=== PATIENT | female | born 1985 | race Native Hawaiian/Other Pacific Islander ===

== ENCOUNTER 2018-05-17 14:07 | Inpatient (IN) | payer OTHER ==
[2018-05-17] MEDS: Lactated Ringer's 1,000 ML IV ONE ×2 (14:50→15:50)
[2018-05-17 14:59] VITALS: BMI 26.9
[2018-05-17] MEDS ORDERED: ceFAZolin 2 GM in Sodium Chloride 0.9% 100 ML IVPB ONE (15:02)
[2018-05-17] MEDS ORDERED: Oxytocin 30 UNIT 30 UNITS/500 ML BAG IV ONE (15:06)
[2018-05-17] MEDS ORDERED: OXYTOCIN/0.9 % NS 20 UNIT/1,000 ML BAG IV SCH (15:15)
[2018-05-17 15:29] LABS: BASO % 0.2 % (0.0-2.0); EOS % 0.4 % (0.0-4.0); HEMOGLOBIN 13.4 g/dL (12.0-16.0); LYMPH # 1.5 K/uL (1.0-4.3); LYMPH % 13.7 % (20.0-40.0); MEAN CELL VOLUME 93.9 fl (81.0-99.0); MEAN CORPUSCULAR HEMOGLOBIN 31.6 pg (27.0-31.0); MEAN CORPUSCULAR HGB CONC 33.7 g/dL (33.0-37.0); MEAN PLATELET VOLUME 8.9 fl (7.2-11.7); MONO # 0.6 K/uL (0.0-0.8); MONO % 5.9 % (0.0-10.0); NEUT # 8.7 K/uL (1.8-7.0); NEUT % 79.8 % (50.0-75.0); NRBC % 0.1 % (0.0-0.0); RBC 4.25 Mil/uL (3.80-5.20); RED CELL DISTRIBUTION WIDTH 13.6 % (11.5-14.5); WHITE BLOOD COUNT 10.9 K/uL (4.8-10.8)
[2018-05-17] MEDS: Lactated Ringer's 1,000 ML IV SCH (17:03)
[2018-05-17] MEDS ORDERED: Morphine 1 mg/ml preservative-free Inj(Duramorph) ONE (17:18)
[2018-05-17] MEDS ORDERED: Phenylephrine 10 mg/ml Inj ONE (17:19)
[2018-05-17] MEDS ORDERED: DiphenhydrAMINE 50 mg/ml Inj IVP PRN (17:32)
[2018-05-17] MEDS ORDERED: Naloxone 0.4 mg/ml Inj (Adult) IVP PRN (17:32)
[2018-05-17] MEDS ORDERED: Oxycodone/Acetaminophen 5/325 mg Tab PO PRN ×2 (18:37)
[2018-05-17] MEDS ORDERED: Lactated Ringer's 1,000 ML IV SCH (18:45)
--- NOTE | 2018-05-17 18:46 | OBHP ---
Datetime: 05/17/2018 14:59 IP Adm Impression: Term, intrauterine IP Chief Complaint Other: Oligohydramnios, Breech IP Admit Plan: Admit to unit; Initiate Section protocol Admit Comment, IP Provider: Pt is a 32 yo F 37.5wk, CAROL 06/03/18 based on LMP 08/27/17, went f or a check up U/S and was told she has oligohydramnios and breech so she came to hospital for a C sec tion. Pt states she may have ROM, last night at 8:30pm she felt fluid more than the usual. Denies vag inal bleeding, contractions, fevers, chills, chest pain, SOB, nausea, vomiting, diarrhea, constipatio n or dysuria. Reports good movement. PNP: Dr. Evnas OB Hx: [place]ligo , BPP 02/15, TATY 3.4 [employer] Hx: Abnormal pap smears 2007-HPV, 11/25- NILM, Denies other STI's PNL: GBS unknown, ABO: O +, others unremarkable PMHx: None Meds: Prenatals Allergies: Wellbutrin- Hives Surg Hx: D_C polyp removed-2015, Leep 2007 Fam Hx: Mom- HTN, DM Grandpa-Lung cancer Social Hx: Denies smoking, EtOH, Drug use PE: General: pleasant, in no acute distress HEENT: normocephalic, EOMI Heart: no murmurs, regular rate and rhythm, S1, S2 normal. Lungs: clear to auscultation bilaterally, no wheezing , rales or rhonchi Abdomen: gravid Extremities: no edema A/P: Pt is a 32 yo F 37.5wk here for C section after U/S showed breech and oliohydramnios -Admit to L _ D -Initatie labor protocol- LR's, CBC, Ab, type and screen -Maintain NPO -Monitor heart rate Case reviewed and discussed with Attending -Sneha Toro- PGY1 (Annotations: Data stored by CPN on behalf of user) Pelvic Type - PN: Adequate Extremities - PN: Normal Abdomen - PN: Normal Back - PN: Not Done Breast - PN: Not Done Lungs - PN: Normal Heart - PN: Normal Thyroid - PN: Not Done Neurologic - PN: Normal HEENT - PN: Normal General - PN: Normal FHR - Baseline A Provider: 150's Contraction Comments Provider: None IP Hx Assessment: The History has been Reviewed and is Current Vital Signs Provider: Reviewed; Within Normal Limits IP Chief Complaint: Other NICHD Variability Prov Fetus A: Moderate 6-25bpm NICHD Accel Fetus A IP Provider: [id number] FHR Category Provider Fetus A: Category I NICHD Decel Fetus A IP Provider: None Genitourinary Exam: Not Done DTRs - PN: Not Done
--- NOTE | 2018-05-17 18:47 | OBDS ---
DELIVERY PERSONNEL Delivery Doctor: Jemma Tripp MD Outside Maintenance Worker: Cheryle Desir RN Anesthesiologist: Dr Rivera Caba MATERNAL INFORMATION Delivery Anesthesia: Spinal Medications in Delivery: Pitocin 30 mu/500 mL LR, ancef 2 gm Estimated Blood Loss (ml): 800 Placenta Cultured: No Maternal Complications: None Provider Comments: See operative report LABOR SUMMARY EDC: 06/03/2018 00:00 No. Babies in Womb: 1 Attempted: No Labor Anesthesia: Intrathecal LABOR INFORMATION Reason for Induction: Not Applicable Oxytocin: N/A Group B Beta Strep: Done, Result Unknown Antibiotics # of Doses: 1 Antibiotics Time of Last Dose: 1712 Steroids Given: None Reason Steroids Not Administered: Not Applicable STAGES OF LABOR Stage 3 hrs: 0 Stage 3 min: 1 CSECTION DELIVERY Primary Indication: Breech Presentation CSection Incision: Lower Uterine Transverse BABY A INFORMATION Delivery Date/Time: 05/17/2018 17:44 Method of Delivery: Born in Route : No : N/A Forceps: N/A Vacuum Extraction: N/A Shoulder Dystocia : No SHOULDER DYSTOCIA BABY A Delivery Date/Time: 05/17/2018 17:44 PRESENTATION/POSITION BABY A Cephalic Presentation: N/A Breech Presentation: Rajeev PLACENTA INFORMATION BABY A Placenta Delivery Time : 05/17/2018 17:45 Placenta Method of Delivery: Expressed Placenta Status: Delivered SCORES BABY A Heart Rate 1 min: >100 bpm Resp Effort 1 min: Good Cry Reflex Irritability 1 min: Cough or Sneeze or Pulls Away Muscle Tone 1 min: Active Motion Color 1 min: Body [place], Extremities Blue Resuscitation Effort 1 min: N/A SCORE 1 MIN: 9 Heart Rate 5 min: >100 bpm Resp Effort 5 min: Good Cry Reflex Irritability 5 min: Cough or Sneeze or Pulls Away Muscle Tone 5 min: Active Motion Color 5 min: Body [place], Extremities Blue Resuscitation Effort 5 min: N/A SCORE 5 MIN: 9 INFANT INFORMATION BABY A Gestational Age at Delivery: 37.4 Gestational Status: Term Infant Outcome : Liveborn Condition : Stable Sex: Female IDENTIFICATION/MEDS BABY A ID Band Number: [id number] ID Band Location: Left Leg; Left Arm WEIGHT/LENGTH BABY A Birthweight (gms): 2590 Weight (lb): 5 Infant Weight (oz): 11 CORD INFORMATION BABY A No. Cord Vessels: 3 Nuchal Cord : N/A Cord Blood Taken: Yes Suction: Mouth; Nose
--- NOTE | 2018-05-17 18:49 | OBDS ---
DELIVERY PERSONNEL Delivery Doctor: Jemma Tripp MD 2[employer] Grade Teacher: Cheryle Desir RN Anesthesiologist: Dr Rivera Caba MATERNAL INFORMATION Delivery Anesthesia: Spinal Medications in Delivery: Pitocin 30 mu/500 mL LR, ancef 2 gm Estimated Blood Loss (ml): 800 Placenta Cultured: No Maternal Complications: None Provider Comments: See operative report LABOR SUMMARY EDC: 06/03/2018 00:00 No. Babies in Womb: 1 Attempted: No Labor Anesthesia: Intrathecal LABOR INFORMATION Reason for Induction: Not Applicable Oxytocin: N/A Group B Beta Strep: Done, Result Unknown Antibiotics # of Doses: 1 Antibiotics Time of Last Dose: 1712 Steroids Given: None Reason Steroids Not Administered: Not Applicable STAGES OF LABOR Stage 3 hrs: 0 Stage 3 min: 1 CSECTION DELIVERY Primary Indication: Breech Presentation CSection Incision: Lower Uterine Transverse BABY A INFORMATION Delivery Date/Time: 05/17/2018 17:44 Method of Delivery: Born in Route : No : N/A Forceps: N/A Vacuum Extraction: N/A Shoulder Dystocia : No SHOULDER DYSTOCIA BABY A Delivery Date/Time: 05/17/2018 17:44 PRESENTATION/POSITION BABY A Cephalic Presentation: N/A Breech Presentation: Rajeev PLACENTA INFORMATION BABY A Placenta Delivery Time : 05/17/2018 17:45 Placenta Method of Delivery: Expressed Placenta Status: Delivered SCORES BABY A Heart Rate 1 min: >100 bpm Resp Effort 1 min: Good Cry Reflex Irritability 1 min: Cough or Sneeze or Pulls Away Muscle Tone 1 min: Active Motion Color 1 min: Body [place], Extremities Blue Resuscitation Effort 1 min: N/A SCORE 1 MIN: 9 Heart Rate 5 min: >100 bpm Resp Effort 5 min: Good Cry Reflex Irritability 5 min: Cough or Sneeze or Pulls Away Muscle Tone 5 min: Active Motion Color 5 min: Body [place], Extremities Blue Resuscitation Effort 5 min: N/A SCORE 5 MIN: 9 INFANT INFORMATION BABY A Gestational Age at Delivery: 37.4 Gestational Status: Term Infant Outcome : Liveborn Condition : Stable Sex: Female IDENTIFICATION/MEDS BABY A ID Band Number: [id number] ID Band Location: Left Leg; Left Arm WEIGHT/LENGTH BABY A Birthweight (gms): 2590 Weight (lb): 5 Infant Weight (oz): 11 CORD INFORMATION BABY A No. Cord Vessels: 3 Nuchal Cord : N/A Cord Blood Taken: Yes Suction: Mouth; Nose
[2018-05-17] MEDS ORDERED: Simethicone 80 mg Chewtab PO SCH (22:00)
[2018-05-18] MEDS: Lactated Ringer's 1,000 ML IV SCH (00:14)
[2018-05-18] MEDS ORDERED: Oxycodone/Acetaminophen 5/325 mg Tab PO PRN (00:41)
[2018-05-18] MEDS ORDERED: Naloxone 0.4 mg/ml Inj (Adult) IVP PRN (00:41)
[2018-05-18] MEDS ORDERED: DiphenhydrAMINE 50 mg/ml Inj IVP PRN (00:41)
[2018-05-18] MEDS ORDERED: Lactated Ringer's 1,000 ML IV SCH ×2 (00:41)
[2018-05-18] MEDS ORDERED: OXYTOCIN/0.9 % NS 20 UNIT/1,000 ML BAG IV SCH (00:41)
--- NOTE | 2018-05-18 03:57 | OP ---
PROCEDURE DATE: 05/17/2018 PREOPERATIVE DIAGNOSES: Oligohydramnios, 37 plus weeks, breech presentation, Maternal Medicine recommended delivery. POSTOPERATIVE DIAGNOSES: Oligohydramnios, 37 plus weeks, breech presentation, Maternal Medicine recommended delivery. OPERATION PERFORMED: Primary low-flap transverse section by Pfannenstiel skin incision. SURGEON: Makeda Tripp MD STAMP MAKER: Dr. Barreto ANESTHESIA: Spinal. ANESTHESIA ADMINISTERED BY: Dr. Caba ESTIMATED BLOOD LOSS: 800 mL. URINE OUTPUT: Wills catheter put out approximately 150 mL of clear urine. INTRAVENOUS FLUID INTAKE: The patient received appropriately 2 L of D5 LR intraoperatively. OPERATIVE FINDINGS: Rajeev breech, female, weighing 2590 g, Apgars 9 and 9. Normal uterus, tubes, and ovaries were identified. DESCRIPTION OF PROCEDURE: After informed consent was obtained, the patient was taken to the operating room where she was given spinal anesthesia. She was then prepped and draped in a normal sterile fashion with a leftward tilt. A Pfannenstiel skin incision was then made with a scalpel and carried down to the underlying layer of fascia. The fascia was nicked in the midline. The fascial incision was then extended laterally with Domingo scissors. The superior aspect of the fascial incision was then grasped with Christiano clamps, elevated up, and the rectus muscles were dissected off using both sharp and blunt dissection. Attention was then turned to the inferior aspect of the fascial incision, which in a similar fashion, and the rectus muscles were dissected off using both sharp and blunt dissection. The rectus muscles were then in the midline. The peritoneum was identified and entered sharply with the Metzenbaum scissors. The peritoneal incision was then extended superiorly and inferiorly until good visualization of the bladder. The bladder blade was inserted. The vesicouterine peritoneum was identified and entered sharply with the Metzenbaum scissors. The incision was then extended laterally. A bladder flap was created digitally. The bladder blade was then inserted. The vesicouterine peritoneum was identified and entered sharply with Metzenbaum scissors. The incision was then extended laterally. The bladder flap was created digitally. The bladder blade was readjusted and a low transverse incision was made with the scalpel. The incision was then extended laterally with the bandage scissors. The breech was then delivered atraumatically. The nose and mouth were suctioned with DeLee suction trap. The cord was clamped and cut. The was handed off to awaiting pediatricians. The placenta was then removed manually. The uterus was exteriorized and cleared of all clots and debris. The uterine incision was repaired with 0 Vicryl in a running-locked fashion. The second layer of the same suture was used to obtain excellent hemostasis. The abdomen was then copiously irrigated. The irrigant was removed with the suction device. The incision was noted to hemostatic. The uterus was returned to the abdomen. The gutters were then cleared of all clots and debris. The peritoneum was closed with a 2-0 Vicryl in a running fashion. The muscles were reapproximated with 0 Vicryl in an interrupted fashion. The fascia was closed with 0 Vicryl in a running fashion. The skin was closed with a 3-0 on a Keegan needle. All sponge, lap, needle and instrument counts were correct x2. The patient was taken to the recovery room in awake and stable condition. Makeda Tripp MD
[2018-05-18] MEDS: Simethicone 80 mg Chewtab PO SCH ×4 (04:00→21:03)
[2018-05-18 06:53] LABS: HEMOGLOBIN 11.1 g/dL (12.0-16.0); MEAN CELL VOLUME 94.9 fl (81.0-99.0); MEAN CORPUSCULAR HEMOGLOBIN 31.9 pg (27.0-31.0); MEAN CORPUSCULAR HGB CONC 33.7 g/dL (33.0-37.0); RBC 3.48 Mil/uL (3.80-5.20); RED CELL DISTRIBUTION WIDTH 13.3 % (11.5-14.5); WHITE BLOOD COUNT 11.1 K/uL (4.8-10.8)
[2018-05-18] MEDS: Multivitamin With Minerals Tab PO SCH (08:26)
[2018-05-18] MEDS ORDERED: Enoxaparin 40 mg Syringe SC SCH (09:00)
[2018-05-18] MEDS ORDERED: Multivitamin With Minerals Tab PO SCH (09:00)
[2018-05-18] MEDS: Oxycodone/Acetaminophen 5/325 mg Tab PO PRN ×2 (16:20→21:03)
--- NOTE | 2018-05-18 22:17 | OBPPN ---
Datetime: 05/18/2018 10:13 PP Pain Prov: Within normal limits PP Nausea Prov: Denies PP Flatus Prov: Yes PP Breasts Prov: Normal PP Heart Prov: Normal PP Lungs Prov: Normal PP Abdomen/Uterus Prov: Normal PP Lochia Prov: Normal PP Vulva/Perineum Prov: Normal PP CVA Tenderness Prov: Normal PP Extremities Prov: Normal PP C/S Incision Prov: Normal PP Progress Prov: Normal PP Comments Phys Exam Prov: Abdomen soft, nontender, nondistended Incision clean, dry, intact Uterus firm, below umbilicus No deep calf tenderness bilaterally PP Impression Prov: Normal progression PP Plan Prov: Continue present management PP Progress Note Prov: Postoperative day #1 status post , patient recovering well Postoperative CBC Regular diet Patient out of bed and ambulating Pain control IP PP Procedures: None Vital Signs Provider PP: Reviewed; Within Normal Limits
[2018-05-19] MEDS: Simethicone 80 mg Chewtab PO SCH ×4 (03:08→21:28)
[2018-05-19] MEDS: Multivitamin With Minerals Tab PO SCH (09:09)
[2018-05-19] MEDS: Oxycodone/Acetaminophen 5/325 mg Tab PO PRN ×2 (09:10→17:06)
--- NOTE | 2018-05-19 20:55 | OBPPN ---
Datetime: 05/19/2018 20:51 PP Pain Prov: Within normal limits PP Nausea Prov: Denies PP Flatus Prov: Yes PP Breasts Prov: Normal PP Heart Prov: Normal PP Lungs Prov: Normal PP Abdomen/Uterus Prov: Normal PP Lochia Prov: Normal PP Vulva/Perineum Prov: Normal PP CVA Tenderness Prov: Normal PP Extremities Prov: Normal PP Comments Phys Exam Prov: Abd: Soft, NT, BS- present UT- Firm Incision: Clean and Dry PP Impression Prov: Normal progression PP Plan Prov: Continue present management PP Progress Note Prov: S/P Delivery, POD #2 Clinically Stable. Plan: Continue Care.
[2018-05-20] MEDS: Simethicone 80 mg Chewtab PO SCH ×3 (05:36→09:35)
--- NOTE | 2018-05-20 08:41 | OBPPN ---
Datetime: 05/20/2018 08:38 PP Pain Prov: Within normal limits PP Nausea Prov: Denies PP Flatus Prov: Yes PP Breasts Prov: Normal PP Heart Prov: Normal PP Lungs Prov: Normal PP Abdomen/Uterus Prov: Normal PP Lochia Prov: Normal PP Vulva/Perineum Prov: Normal PP CVA Tenderness Prov: Normal PP Extremities Prov: Normal PP Comments Phys Exam Prov: Abd: Soft, NTY, BS - present UT- Firm Incision- Clean and dry PP Impression Prov: Normal progression PP Plan Prov: Discharge PP Progress Note Prov: S/P Section, POD #3 Clinically Stable. Plan: Discharge Home. Vital Signs Provider PP: Reviewed
--- NOTE | 2018-05-20 08:43 | OBDCSUM ---
Datetime: 05/20/2018 08:40 Discharged to, Provider: Home Follow up at, Provider: Dr Evans Disch Instr Activity: Normal activity Disch Instr Diet: Regular Discharge Instructions, Provider: Routine instructions given Discharge Diagnosis, Provider: Term Delivered Discharge Time: 05/20/2018 08:40 Follow up in weeks, Provider: 4-6 weeks Disch Referrals: None Contraception discussed, Prov: Yes Discharge Comment, Provider: S/P Delivery, Clinically Stable Discharge Diagnosis Prov Other: S/P Delivery, Clinically Stable
[2018-05-20] MEDS: Multivitamin With Minerals Tab PO SCH (09:35)
[2018-05-20] MEDS: Oxycodone/Acetaminophen 5/325 mg Tab PO PRN (09:36)
[2018-05-20 18:57] VITALS: BP 124/71; PULSE 79; RESP 18; TEMP 98.1; O2SAT 98
== END 2018-05-20 11:13 | disposition home or self-care (01) | DRG 787 ==
LOC: H.EROB2 14:07 → H.L&D 15:05 → H.OB/GYN 21:08
PROVIDERS: ADMIT Obstetrics & Gynecology; ATTEND Obstetrics & Gynecology
PROC: 10D00Z1 Extraction of Products of Conception, Low, Open Approach (ICD-10-PCS; principal; 2018-05-17)
PROC: 4A1HXCZ Monitoring of Products of Conception, Cardiac Rate, External Approach (ICD-10-PCS; 2018-05-17)
DX: O32.1XX0 Maternal care for breech presentation, not applicable or unspecified (principal); O41.03X0 Oligohydramnios, third trimester, not applicable or unspecified; Z3A.37 37 weeks gestation of pregnancy; Z37.0 Single live birth; Z82.49 Family history of ischemic heart disease and other diseases of the circulatory system; Z83.3 Family history of diabetes mellitus